=== PATIENT | female | born 1985 | race Asian ===

== ENCOUNTER 2017-12-13 17:55 | Emergency (ER) | payer OTHER ==
[~2017-12-13] VITALS: Ht 170.2 cm; Wt 61.7 kg
[2017-12-13 19:17] LABS: PLATELET COUNT 269 K/uL (152-353)
== END 2017-12-13 20:27 | disposition home or self-care (01) ==
LOC: ED 17:55
DX: K52.9 Noninfective gastroenteritis and colitis, unspecified (principal)
CPT/HCPCS: 36415; 74022; 80053; 85027; 96360; 96361; 96374; 99284; J2405

== ENCOUNTER 2018-12-20 14:39 | Emergency (ER) | payer OTHER ==
[~2018-12-20] VITALS: Ht 170.2 cm; Wt 64.4 kg
[2018-12-20 14:53] VITALS: TEMP 98.4
[2018-12-20 17:25] VITALS: BP 122/74
== END 2018-12-20 17:38 | disposition home or self-care (01) ==
LOC: ED 14:39
PROC: 2W3DX1Z Immobilization of Left Lower Arm using Splint (ICD-10-PCS; principal; 2018-12-20)
DX: S63.502A Unspecified sprain of left wrist, initial encounter (principal); X58.XXXA Exposure to other specified factors, initial encounter
CPT/HCPCS: 81025; 96372; 99283; J1885; L3908

== ENCOUNTER 2019-03-15 12:53 | Emergency (ER) | payer BC ==
[~2019-03-15] VITALS: Ht 170.2 cm; Wt 64.4 kg
[2019-03-15] MEDS ORDERED: HYDROCORTISONE1 % TOP (13:36)
[2019-03-15] MEDS ORDERED: DOXYCYCLINE100 MG PO (13:36)
[2019-03-15 13:45] VITALS: BP 106/61; TEMP 97.9
== END 2019-03-15 13:45 | disposition home or self-care (01) ==
LOC: ED 12:53
DX: L25.9 Unspecified contact dermatitis, unspecified cause (principal); L03.114 Cellulitis of left upper limb
CPT/HCPCS: 99281

== ENCOUNTER 2019-09-01 16:05 | Emergency (ER) | payer OTHER ==
[~2019-09-01] VITALS: Ht 170.2 cm; Wt 66.7 kg
[~2019-09-01 16:05] MED LIST: DOXYCYCLINE100 MG PO; HYDROCORTISONE1 % TOP
[2019-09-01 16:40] LABS: PLATELET COUNT 241 K/uL (152-353)
[2019-09-01 16:50] LABS: POTASSIUM 3.2 mmol/L (3.6-5.2)
[2019-09-01 19:13] VITALS: BP 112/81; TEMP 98.2
== END 2019-09-01 19:14 | disposition home or self-care (01) ==
LOC: ED 16:05
PROVIDERS: Emergency Medicine
DX: R50.9 Fever, unspecified (principal); R52 Pain, unspecified
CPT/HCPCS: 80053; 81000; 85027; 87040; 87502; 87651; 99283

== ENCOUNTER 2020-09-15 13:55 | Outpatient (CLI) | payer OTHER | END 2020-09-15 22:24 | disposition home or self-care (01) | LOC: RAD 13:55 | PROVIDERS: ATTEND Nurse Practitioner Family | DX: M25.531 Pain in right wrist (principal) ==

== ENCOUNTER 2021-04-03 10:51 | Emergency (ER) | payer OTHER ==
[~2021-04-03] VITALS: Ht 170.2 cm; Wt 66.7 kg
[2021-04-03 11:00] VITALS: BP 114/75; TEMP 97.6
[2021-04-03 11:37] LABS: PLATELET COUNT 319 K/uL (152-353)
[2021-04-03 11:48] LABS: POTASSIUM 3.8 mmol/L (3.6-5.2)
== END 2021-04-03 13:23 | disposition home or self-care (01) ==
LOC: ED 10:51
PROVIDERS: Family Medicine
DX: S46.811A Strain of other muscles, fascia and tendons at shoulder and upper arm level, right arm, initial encounter (principal)
CPT/HCPCS: 80053; 85027; 96372; 99283; J1885